=== PATIENT | male | born 1990 | race Caucasian/White ===

== ENCOUNTER 2020-07-07 17:33 | Emergency (ER) | payer BC ==
[~2020-07-07] VITALS: Ht 185.4 cm; Wt 83.9 kg
--- NOTE | 2020-07-07 17:53 | NUR ---
CALLED [facility] [phone] LINE TESTER #907 UNIT TO BE DISPATCHED
[2020-07-07] MEDS ORDERED: TDAP [DIPH/PERTUSSIS/TET] 0.5 ML VIAL IM ONE ×2 (17:58→18:00)
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
[2020-07-07 18:34] VITALS: BP 135/77
--- NOTE | 2020-07-07 18:34 | NUR ---
Patient discharged to home in stable condition. Written and verbal after care instructions given. Patient verbalizes understanding of instruction.
== END 2020-07-07 18:34 | disposition home or self-care (01) ==
LOC: EDSEX 17:37 → ER 17:37
DX: S01.511A Laceration without foreign body of lip, initial encounter (principal); Y04.0XXA Assault by unarmed brawl or fight, initial encounter; Y93.01 Activity, walking, marching and hiking; Y92.488 Other paved roadways as the place of occurrence of the external cause; Y99.8 Other external cause status
CPT/HCPCS: 90471; 90715; 99283; A6403